=== PATIENT | male | born 1985 | race Caucasian/White ===

== ENCOUNTER 2020-11-03 09:58 | Outpatient (REF) | payer OTHER, SELFPAY | END 2020-11-03 09:59 | disposition home or self-care (01) | LOC: HO.LAB 09:58 | PROVIDERS: Visit Provider Internal Medicine | DX: Z20.828 Contact with and (suspected) exposure to other viral communicable diseases (principal) | CPT/HCPCS: C9803; U0003 ==

== ENCOUNTER 2021-03-23 08:45 | Outpatient (REF) | payer OTHER, SELFPAY ==
[2021-03-23 09:20] LABS: COVID-19 Test Negative (Negative); IDNOW Serial# 55D5AD1C
== END 2021-03-23 08:46 | disposition home or self-care (01) ==
LOC: HO.LAB 08:45
PROVIDERS: Visit Provider Internal Medicine
DX: Z20.822 Contact with and (suspected) exposure to COVID-19 (principal)
CPT/HCPCS: 36415; 87635; C9803

== ENCOUNTER 2022-07-31 09:04 | Emergency (ER) | payer OTHER, SELFPAY ==
--- NOTE | ~2022-07-31 | US_ITS ---
EXAMINATION: US SCROTUM CLINICAL INFORMATION: Left-sided pain.. COMPARISON: None TECHNIQUE: A sonogram of the scrotum was performed assessing ochoa-scale appearance and color Doppler flow. Spectral Doppler analysis of the arterial and venous flow were performed in the testes bilaterally. FINDINGS: RIGHT: Right testicle measures 3.7 x 2.1 x 2.6 cm, volume 10.6 mL. No solid lesions seen. Spectral Doppler analysis of the arterial and venous flow is slightly increased in the right testis. Right epididymal head is unremarkable in size. There are 3 small epididymal head cysts noted measuring up to 3 mm. No right hydrocele or varicocele is seen. Right epididymal Doppler flow is normal. LEFT: Left testicle measures 4.2 x 2.2 x 2.6 cm, volume 12.6 mL. No focal testicular parenchymal lesions are visualized. Spectral Doppler analysis of the arterial and venous flow is slightly increased in the left testis. Left epididymal head is normal in size.. There is a punctate calcified cystic structure in the left epididymal head at 5 x 7 mm probably an old spermatocele or complex cyst. No left hydrocele or varicocele is seen. Left epididymal Doppler flow is normal. US/US scrotum doppler IMPRESSION: No suspicious intratesticular lesions. There is slight increased vascularity in the right and left testis which could be reflective of orchitis.
--- NOTE | ~2022-07-31 | US_ITS ---
EXAMINATION: US SCROTUM CLINICAL INFORMATION: Left-sided pain.. COMPARISON: None TECHNIQUE: A sonogram of the scrotum was performed assessing ochoa-scale appearance and color Doppler flow. Spectral Doppler analysis of the arterial and venous flow were performed in the testes bilaterally. FINDINGS: RIGHT: Right testicle measures 3.7 x 2.1 x 2.6 cm, volume 10.6 mL. No solid lesions seen. Spectral Doppler analysis of the arterial and venous flow is slightly increased in the right testis. Right epididymal head is unremarkable in size. There are 3 small epididymal head cysts noted measuring up to 3 mm. No right hydrocele or varicocele is seen. Right epididymal Doppler flow is normal. LEFT: Left testicle measures 4.2 x 2.2 x 2.6 cm, volume 12.6 mL. No focal testicular parenchymal lesions are visualized. Spectral Doppler analysis of the arterial and venous flow is slightly increased in the left testis. Left epididymal head is normal in size.. There is a punctate calcified cystic structure in the left epididymal head at 5 x 7 mm probably an old spermatocele or complex cyst. No left hydrocele or varicocele is seen. Left epididymal Doppler flow is normal. US/US scrotum IMPRESSION: No suspicious intratesticular lesions. There is slight increased vascularity in the right and left testis which could be reflective of orchitis.
[2022-07-31 09:07] VITALS: BP 125/71; PULSE 74; RESP 20; TEMP 36.4; O2SAT 99; BMI 44.0
[2022-07-31 09:26] VITALS: BP 112/61; PULSE 66; RESP 14; TEMP 36.4; O2SAT 98
[2022-07-31 09:26] LABS: Appearance Urine Clear; Color Urine Yellow; Glucose Urine UA Negative (Negative); Leukocyte Esterase Urine Negative (Negative); Nitrite Urine Negative (Negative); Specific Gravity - Urine 1.025 (1.005-1.025); Urine Blood Negative (Negative); Urine Ketones Trace mg/dL (Negative); Urine Protein Trace mg/dL (Neg-Trace)
--- NOTE | 2022-07-31 09:43 | ED.MALEGU ---
HPI - Male Genitourinary General Chief complaint: Urogenital-Male Stated complaint: testical pain Time Seen by Provider: 07/31/22 09:27 Source: patient Mode of arrival: ambulatory History of Present Illness Complaint: testicle pain Onset (ago): hour(s) (4am today) Duration: constant Location: left testicle Radiation: left inguinal region Quality: aching Relieving factors: none Exacerbating factors: palpation Associated symptoms: Reports denies other symptoms Related Data Previous Rx's Medication Instructions Recorded ibuprofen 600 mg tablet 600 mg PO Q6H PRN pain #30 tabs 07/31/22 levofloxacin 500 mg tablet 500 mg PO DAILY #10 tabs 07/31/22 Allergies Allergy/AdvReac Type Severity Reaction Status Date / Time No Known Allergies Allergy Unverified 08/18/20 18:12 [No Known Allergies*] Review of Systems Review of Systems: Constitutional : No Fever, No Chills ENT/Mouth : No sore throat, No Rhinorrhea Eyes: No Eye Pain, No Swelling, No Redness Cardiovascular : No Chest Pain, No SOB Respiratory : No Cough, No Sputum, No Wheezing Gastrointestinal : No Nausea, No Vomiting, No Diarrhea, pos abdominal Pain Genitourinary : No Dysuria, No Urinary Frequency, No Hematuria, pos testicle pain Musculoskeletal : No joint pain, No Myalgias, No Joint Swelling Skin : No Skin Lesions, No rash Neuro : No Weakness, No Numbness, No Dizziness, No Headache Psych : No Anxiety/Panic, No Depression Heme/Lymph: No Bruising, No Bleeding,No Lymphadenopathy Endocrine : No Polyuria, No Polydipsia All other systems reviewed and are negative FORMERLY [facility], [facility] Past Medical History Medical History No pertinent past medical history Social History Social History Patient Tobacco Use Status: Current everyday Tobacco user Use of substances other than those prescribed or required for medical reasons: No Substance Use Type: Marijuana Advance Directives: No Advance Directives Information Provided: Yes Physical Exam Vital Signs: Vital Signs: Last Vital Signs Temp 97.6 F 07/31/22 09:26 Pulse 66 07/31/22 09:26 Resp 14 07/31/22 09:26 BP 112/61 07/31/22 09:26 Pulse Ox 98 07/31/22 09:26 O2 Del Method 07/31/22 09:26 BMI result Body Mass Index 44.0 Appearance: Alert. Oriented X3. No acute distress. Eyes: Pupils equal, round and reactive to light. ENT: Pharynx normal. Neck: Normal inspection. Neck supple. CVS: Normal heart rate and rhythm. Pulses normal. Respiratory: No respiratory distress. Breath sounds normal. Abdomen: Soft and nontender. no mass felt in L inguinal area : ttp along L spermatic cord, penis and scrotum itself appear normal Skin: Skin warm and dry. Normal skin color. Normal skin turgor. Extremities: No lower extremity edema. No calf ttp Neuro: Oriented X 3. No motor deficit. No sensory deficit. Course Course Course Narrative: patient reports low susp for STI hes 36 will give rocephin and then cover with levofloxacin given risk factors - not toxic, anticipate DC home low susp for G+C at this time MDM - Male Genitourinary MDM Narrative Medical decision making narrative: 36 yo male with atraumatic L testicular pain - at this time will need UA, US to evaluate for torsion/epididymitis - no other systemic symptoms. Could be renal colic though no hematuria and no prior bouts of kidney stones. Dispo per results and findings. Lab Data Result diagrams: 07/31/22 11:07 07/31/22 11:07 Labs: Lab Results 07/31/22 07/31/22 07/31/22 Range/Units 09:18 11:07 11:07 WBC 7.4 (4.8-10.8) X10*3/uL RBC 5.79 (4.60-5.80) X10*6/uL Hgb 16.3 (14.0-18.0) g/dl Hct 49.5 (42.0-52.0) % MCV 85.5 (80.0-98.0) fL MCH 28.2 (27.0-33.0) pg MCHC 32.9 (31.0-36.0) g/dl RDW 12.8 (11.0-16.0) % Plt Count 221 (160-400) X10*3/uL MPV 11.2 (9.4-12.4) fL Immature Gran % (Auto) 0.3 (0.0-0.4) % Neut % (Auto) 52.9 (45-73) % Lymph % (Auto) 28.5 (20-40) % [place] % (Auto) 8.5 (2-11) % Eos % (Auto) 9.0 H (0-4) % Baso % (Auto) 0.8 (0-2) % Lymph # (Auto) 2.1 (1.2-4.9) X10*3/uL [place] # (Auto) 0.6 (0.1-1.2) X10*3/uL Eos # (Auto) 0.7 H (0.0-0.4) X10*3/uL Baso # (Auto) 0.1 (0.0-0.2) X10*3/uL Abs Immat Gran (auto) 0.02 (0.00-0.03) X10*3/uL Absolute Neuts (auto) 3.9 (2.0-8.3) x10*3/uL Absolute Nucleated RBC 0.000 (0.0-0.012) X10*3/uL Nucleated RBC % (auto) 0.0 (0.0-0.2) /100WBC Sodium 139 (135-145) mmol/L Potassium 4.2 (3.3-5.1) mmol/L Chloride 104 (96-108) mmol/L Carbon Dioxide 25 (22-29) mmol/L Anion Gap 14 (12-20) BUN 12 (9-16) mg/dL Creatinine 0.95 (0.5-1.4) mg/dL Estim Creat Clear Calc 163.5 Estimated GFR > 60 Random Glucose 93 (60-115) mg/dL Calcium 9.1 (8.4-10.2) mg/dL Urine Color Yellow Urine Appearance Clear Urine pH 6.0 (5.0-8.0) Ur Specific [place] 1.025 (1.005-1.025) Urine Protein Trace (Neg-Trace) mg/dL Urine Glucose (UA) Negative (Negative) mg/dL Urine Ketones Trace (Negative) mg/dL Urine Blood Negative (Negative) Urine Nitrite Negative (Negative) Ur Leukocyte Esterase Negative (Negative) Discharge Plan Discharge Clinical Impression: Acute orchitis Patient Disposition: Home, Self-Care Instructions: Orchitis (ED), Scrotal Pain (ED) Additional Instructions: return to ED for any worsening symptoms or concerns return for fevers, vomiting, no improvement in pain, do not exercise on these medications you could injure a tendon, wear tight fitting supportive underwear no sex for 1 week we will notify you of positive test results in the next 48 to 72 hours Prescriptions: New levofloxacin 500 mg tablet 500 mg PO DAILY Qty: 10 0RF ibuprofen 600 mg tablet 600 mg PO Q6H PRN (Reason: pain) Qty: 30 0RF Stand Alone Forms: Work/School Release
[2022-07-31 11:10] LABS: MANUAL DIFF FLAG NO
[2022-07-31 11:16] LABS: Basophils Absolute Auto 0.1 X10*3/uL (0.0-0.2); Basophils Percent Auto 0.8 % (0-2); Eosinophils Absolute Auto 0.7 X10*3/uL (0.0-0.4); Hematocrit 49.5 % (42.0-52.0); Hemoglobin 16.3 g/dl (14.0-18.0); Imm Gran Abs Auto 0.02 X10*3/uL (0.00-0.03); Imm Gran Pct Auto 0.3 % (0.0-0.4); Lymphocytes Absolute Auto 2.1 X10*3/uL (1.2-4.9); Lymphocytes Percent Auto 28.5 % (20-40); Mean Corpuscular HGB Conc 32.9 g/dl (31.0-36.0); Mean Corpuscular Hemoglobin 28.2 pg (27.0-33.0); Mean Corpuscular Volume 85.5 fL (80.0-98.0); Mean Platelet Volume 11.2 fL (9.4-12.4); Monocytes Absolute Auto 0.6 X10*3/uL (0.1-1.2); Monocytes Percent Auto 8.5 % (2-11); Neutrophils Absolute Auto 3.9 x10*3/uL (2.0-8.3); Neutrophils Percent Auto 52.9 % (45-73); Platelet Count 221 X10*3/uL (160-400); Red Blood Count 5.79 X10*6/uL (4.60-5.80); Red Cell Distribution Width 12.8 % (11.0-16.0); White Blood Count 7.4 X10*3/uL (4.8-10.8)
[2022-07-31 11:24] LABS: Anion Gap 14 (12-20); Blood Urea Nitrogen 12 mg/dL (9-16); Calcium 9.1 mg/dL (8.4-10.2); Carbon Dioxide 25 mmol/L (22-29); Chloride 104 mmol/L (96-108); Creatinine Clr Calc Pharmacy 163.5; Estimated Glomerular Filt Rate > 60; Glucose Random 93 mg/dL (60-115); Potassium 4.2 mmol/L (3.3-5.1); Sodium 139 mmol/L (135-145)
[2022-07-31] MEDS: cefTRIAXone sodium 500 MG, Lidocaine HCl 1 % MPF 1 ML IM (11:52)
[2022-07-31 13:51] LABS: CT PCR NOT DETECTED (Not Detect.); NG PCR NOT DETECTED (Not Detect.)
== END 2022-07-31 11:56 | disposition home or self-care (01) ==
PROVIDERS: Emergency Provider Emergency Medicine
DX: N45.2 Orchitis (principal); N50.812 Left testicular pain
CPT/HCPCS: 36415; 76870; 80048; 81003; 85025; 87491; 87591; 93975; 96372; 99284; J0696

== ENCOUNTER 2022-09-27 11:37 | Outpatient (REF) | payer OTHER, SELFPAY ==
[2022-09-27 12:17] LABS: COVID-19 Test Positive (Negative); IDNOW Serial# 16C4AD1C
== END 2022-09-27 11:38 | disposition home or self-care (01) ==
LOC: HO.LAB 11:37
PROVIDERS: Visit Provider Internal Medicine
DX: Z20.822 Contact with and (suspected) exposure to COVID-19 (principal)
CPT/HCPCS: 87635; C9803

== ENCOUNTER 2025-08-19 11:01 | Emergency (ER) | payer OTHER, SELFPAY ==
--- NOTE | ~2025-08-19 | XR_ITS ---
EXAMINATION: XR ANKLE 3 OR MORE VIEWS RIGHT, XR FOOT 3 OR MORE VIEWS RIGHT HISTORY: pain lateral malleolus, ?gout COMPARISON: Comparison is made with the prior examination of the right foot dated 08/05/2019. FINDINGS: Six views of the right foot and ankle are submitted. Osseous mineralization is normal. There is no fracture or dislocation. The joint spaces are preserved. There are no erosions. There is soft tissue swelling over the lateral malleolus. XR/XR foot RT min 3V IMPRESSION: Soft tissue swelling over the lateral malleolus. Otherwise unremarkable examination of the right foot and ankle. Electronically signed by: Jl Russo MD 08/19/2025 12:13 PM EDT
--- NOTE | ~2025-08-19 | XR_ITS ---
EXAMINATION: XR ANKLE 3 OR MORE VIEWS RIGHT, XR FOOT 3 OR MORE VIEWS RIGHT HISTORY: pain lateral malleolus, ?gout COMPARISON: Comparison is made with the prior examination of the right foot dated 08/05/2019. FINDINGS: Six views of the right foot and ankle are submitted. Osseous mineralization is normal. There is no fracture or dislocation. The joint spaces are preserved. There are no erosions. There is soft tissue swelling over the lateral malleolus. XR/XR ankle RT min 3V IMPRESSION: Soft tissue swelling over the lateral malleolus. Otherwise unremarkable examination of the right foot and ankle. Electronically signed by: Jl Russo MD 08/19/2025 12:13 PM EDT
[2025-08-19 11:21] VITALS: BP 119/72; PULSE 88; RESP 18; TEMP 36.8; O2SAT 99; BMI 51.3
--- NOTE | 2025-08-19 11:22 | ED.LOWEXIN ---
HPI - Extremity Injury (Lower) General Chief Complaint: General Medical Stated Complaint: r ankle inj Time Seen by Provider: 08/19/25 12:16 Source: patient and RN notes reviewed Mode of arrival: ambulatory Limitations: no limitations History of Present Illness ED Provider: Lynne Wilson PA-C HPI Narrative: This is a 40-year-old male, with no known medical problems, who presents emergency department with concerns of right ankle pain for the last 2 days. Patient denies any recent trauma, injury, or falls. No history of similar symptoms in the past. He states that his family does have a history of gout. He states that yesterday he noticed pain however this morning he has been unable to bear weight secondary to the pain. No fevers or chills. He states that he took a Percocet this morning which provided him with some relief. No other complaints or concerns at this time. MD complaint: ankle injury Onset (ago): day(s) Type of Injury: unknown Relieving factors: nothing Exacerbating factors: nothing Associated symptoms: swelling Other symptoms: none Related Data Previous Rx's ?Medication ?Instructions ?Recorded ibuprofen 600 mg tablet 600 mg PO Q6H PRN pain #30 tabs 07/31/22 levofloxacin 500 mg tablet 500 mg PO DAILY #10 tabs 07/31/22 acetaminophen 500 mg tablet 1,000 mg (2 x 500 mg) PO QID PRN 08/19/25 (Tylenol Extra Strength) pain #30 tabs ibuprofen 600 mg tablet 600 mg PO Q6H PRN pain #30 tabs 08/19/25 morphine 15 mg immediate release 15 mg PO Q6H PRN severe pain 08/19/25 tablet (scale score 7-10) 4 days #7 tabs prednisone 20 mg tablet 40 mg (2 x 20 mg) PO DAILY 4 days 08/19/25 #8 tabs Allergies Allergy/AdvReac Type Severity Reaction Status Date / Time No Known Allergies (No Known Allergy Verified 08/19/25 11:23 Allergies*) Review of Systems Review of Systems: Constitutional : No Fever, No Chills ENT/Mouth : No sore throat, No Rhinorrhea Eyes: No Eye Pain, No Swelling, No Redness Cardiovascular : No Chest Pain, No SOB Respiratory : No Cough, No Sputum Gastrointestinal : No Nausea, No Vomiting, No Diarrhea, No abdominal Pain Genitourinary : No Dysuria, No Hematuria Musculoskeletal :+ joint pain, No Myalgias, + Joint Swelling Skin : No Skin Lesions Neuro : No Weakness, No Numbness, No Headache All other systems reviewed and are negative Yes all other systems are reviewed and are negative Constitutional: Constitutional: Reports as per [facility] Past Medical History Attestation statement: The following information was validated with the patient. Medical History No pertinent past medical history Social History Social History Alcohol intake: current Alcohol intake frequency: holidays/special occasions only Alcohol type: beer Patient Tobacco Use Status: Current everyday Tobacco user Smoked in Last 30 Days: Yes Use of substances other than those prescribed or required for medical reasons: Yes Substance Use Type: Marijuana Advance Directives: No Advance Directives Information Provided: No Physical Exam Vital Signs: Vital Signs: Last Vital Signs Temp 98.2 F 08/19/25 14:26 Pulse 88 08/19/25 14:26 Resp 18 08/19/25 14:26 BP 119/72 08/19/25 14:26 Pulse Ox 99 08/19/25 14:26 O2 Del Method Room Air 08/19/25 14:26 BMI result Body Mass Index 51.3 Const: General: cooperative, comfortable and no acute distress Orientation/consciousness: patient oriented x3 Limitations: no limitations HEENT: Head: Yes normal to inspection, Yes normocephalic and Yes atraumatic Ears: hearing grossly normal bilaterally General nose exam: Normal external nose present Face and sinus: Yes normal facial exam Mouth: Normal oral and palatal mucosa present, oropharynx normal and moist mucous membranes Throat: Yes posterior oropharynx normal Eyes: General: appearance normal, both eyes and all related structures Eyelids: Yes eyelids normal Conjunctivae: conjunctivae normal Sclerae: sclerae normal Pupils: Equal, round and reactive pupils present EOM: EOMs intact bilaterally Neck: Neck: Yes normal visual inspection, Yes full ROM and Yes no lymphadenopathy Lymphatic: no lymphadenopathy noted Chest: Chest palpation & inspection: normal inspection of the chest Resp: Effort & Inspection: normal respiratory effort and able to speak in complete sentences Auscultation: clear to auscultation bilaterally, no crackles, no rales, no rhonchi and no wheezes Cardio: Rate: regular rate Rhythm: regular rhythm Heart sounds: S1 normal heart sound present and S2 normal heart sound present GI: Inspection: Yes normal to inspection Skin: General skin exam: no rashes or lesions noted Trauma: no lacerations or abrasions Wounds: no wounds Neuro: General: patient oriented x3 and moves all extremities Cranial nerves: Yes Equal, round and reactive pupils present Extrem: Other: Right ankle lateral malleolus, with tenderness palpation even to light palpation, with faint erythema and warmth, able to dorsi and plantar flex. Strong DP pulse. No calf tenderness. General: Yes normal to inspection Right upper extremity: normal to inspection Left upper extremity: normal to inspection Left lower extremity: normal to inspection Course Course Course Narrative: This is an RME: Additional HPI, ROS, PE not included below will be deferred to primary provider. RME assessment and note performed by: Lynne Wilson PA-C This is a 6-ct[age]-male, with no known medical problems, who presents emergency department with complaints of atraumatic right ankle pain since yesterday. Patient unable to bear weight today. No history of gout. Tenderness palpation along the lateral aspect of the right malleolus with warmth and edema noted. Plan: Labs, x-ray, further ER evaluation needed. Medications Administered Discontinued Medications Generic Name Dose Route Start Last Admin Trade Name Freq PRN Reason Stop Dose Admin Acetaminophen 975 mg 08/19/25 13:01 08/19/25 13:18 Acetaminophen 325 Mg Tablet PO 08/19/25 13:02 975 mg ONCE ONE Administration Morphine Sulfate 15 mg 08/19/25 13:01 08/19/25 13:18 Morphine Sulfate Immed Release 15 Mg Tablet PO 08/19/25 13:02 15 mg ONCE ONE Administration Prednisone 50 mg 08/19/25 13:01 08/19/25 13:18 Prednisone 10 Mg Tablet PO 08/19/25 13:02 50 mg ONCE ONE Administration Medical Decision Making Medical Decision Making MDM Narrative: This is a 40-year-old male who presents emergency department with complaints of right ankle pain for the last 2 days. No trauma or injury. On arrival, vital signs within normal limits. He is speaking in full sentences under no acute distress. No known history of gout however atraumatic, with tenderness to palpation even to light palpation with warmth, and faint erythema, suspicious for gout flare-up. Able to dorsi and plantar flex however limited secondary to pain. Will obtain labs to rule out any significant electrolyte derangement as well as x-rays to rule out any bony abnormalities. 1:13 PM 08/19/2025 (Lynne Wilson PA-C): Labs returned, he has slight leukocytosis at 12.3, likely reactive, ESR 3, CRP just above normal range at 0.7, uric acid is elevated at 7.9. X-ray of the right foot and ankle reveal moderate edema noted along the lateral malleolus. Overall workup today consistent with gout, will treat with Tylenol, morphine, and prednisone in the department today. Will monitor closely to ensure that his pain has improved prior to departure. Differential Diagnosis Differential Diagnoses: The differential diagnosis associated with the presentation includes Gout, cellulitis, septic arthritis, strain, sprain, contusion Lab Data [facility] Lab Attestation statement: I reviewed the patient's lab results. See [facility] 08/19/25 11:42 08/19/25 11:42 Labs: Lab Results 08/19/25 Range/Units 11:42 WBC 12.3 H (4.8-10.8) X10*3/uL RBC 5.68 (4.60-5.80) X10*6/uL Hgb 16.8 (14.0-18.0) g/dl Hct 49.2 (42.0-52.0) % MCV 86.6 (80.0-98.0) fL MCH 29.6 (27.0-33.0) pg MCHC 34.1 (31.0-36.0) g/dl RDW 12.9 (11.0-16.0) % Plt Count 166 (160-400) X10*3/uL MPV 11.4 (9.4-12.4) fL Immature Gran % (Auto) 0.3 (0.0-0.4) % Neut % (Auto) 71.1 (45-73) % Lymph % (Auto) 13.1 L (20-40) % [place] % (Auto) 9.3 (2-11) % Eos % (Auto) 5.6 H (0-4) % Baso % (Auto) 0.6 (0-2) % Lymph # (Auto) 1.6 (1.2-4.9) X10*3/uL [place] # (Auto) 1.1 (0.1-1.2) X10*3/uL Eos # (Auto) 0.7 H (0.0-0.4) X10*3/uL Baso # (Auto) 0.1 (0.0-0.2) X10*3/uL Abs Immat Gran (auto) 0.04 H (0.00-0.03) X10*3/uL Absolute Neuts (auto) 8.8 H (2.0-8.3) x10*3/uL Absolute Nucleated RBC 0.000 (0.0-0.012) X10*3/uL Nucleated RBC % (auto) 0.0 (0.0-0.2) /100WBC ESR 3 (0-15) MM/HR Sodium 138 (135-145) mmol/L Potassium 4.1 (3.3-5.1) mmol/L Chloride 105 (96-108) mmol/L Carbon Dioxide 24 (22-29) mmol/L Anion Gap 13 (12-20) BUN 12 (9-16) mg/dL Creatinine 0.95 (0.5-1.4) mg/dL Estim Creat Clear Calc 171.7 Estimated GFR > 60 Random Glucose 97 (60-115) mg/dL Uric Acid 7.9 H (3.4-7.0) mg/dL Calcium 9.4 (8.4-10.2) mg/dL Total Bilirubin 0.6 (0.0-1.0) mg/dL Direct Bilirubin 0.2 (0.0-0.5) mg/dL AST 34 (5-37) U/L ALT 41 H (0-40) U/L Alkaline Phosphatase 65 (39-117) U/L C-Reactive Protein 0.70 H (< or = 0.50) mg/dL Total Protein 7.5 (6.5-8.0) g/dL Albumin 4.3 (3.5-5.0) g/dL Radiology Impression Discussion of test interpretation with radiology: I have reviewed the radiologist's reading. Radiologist Impression: FINDINGS: Six views of the right foot and ankle are submitted. Osseous mineralization is normal. There is no fracture or dislocation. The joint spaces are preserved. There are no erosions. There is soft tissue swelling over the lateral malleolus. XR/XR foot RT min 3V IMPRESSION: Soft tissue swelling over the lateral malleolus. Otherwise unremarkable examination of the right foot and ankle. Electronically signed by: Jl Russo MD 08/19/2025 12:13 PM EDT RP Dictated By: Jl Russo MD FINDINGS: Six views of the right foot and ankle are submitted. Osseous mineralization is normal. There is no fracture or dislocation. The joint spaces are preserved. There are no erosions. There is soft tissue swelling over the lateral malleolus. XR/XR ankle RT min 3V IMPRESSION: Soft tissue swelling over the lateral malleolus. Otherwise unremarkable examination of the right foot and ankle. Electronically signed by: Jl Russo MD 08/19/2025 12:13 PM EDT RP Dictated By: Jl Russo MD Discharge Plan Discharge Clinical Impression: Gout Patient Disposition: Home, Self-Care Instructions: Low Purine Diet (ED), Gout (ED), Swollen Ankle Joint (ED) Additional Instructions: You were seen in the emergency department due to right ankle pain. Your exam as well as your blood work is concerning for gout. Please see attached documentation as to lifestyle modifications to help prevent flare-ups from happening in the future. Please take prescribed prednisone as directed, you already received a dose today therefore start this tomorrow. Ibuprofen and or Tylenol around the clock and help for pain. Ibuprofen 600 mg every 6 hours take this with food, 2 hours later take Tylenol 1000 mg every 8 hours. Morphine as a strong narcotic pain medication, take this only for severe pain only. Please be advised that this is an addictive medication therefore should only be reserved for emergency purposes only. Please be advised that we can not refill this medication through the emergency room, this may cause drowsiness, do not drink alcohol or drive while taking this medication. Call your primary care physician regarding this visit. If any new or worsening symptoms occur including but not limited to high fevers, worsening redness or swelling to your ankle, inability to move ankle, please return for re-evaluation. Prescriptions: New prednisone 20 mg tablet 40 mg PO DAILY 4 Days Qty: 8 0RF Rx Instructions: start 08/20 morphine 15 mg tablet 15 mg PO Q6H PRN (Reason: severe pain (scale score 7-10)) 4 Days Qty: 7 0RF Rx Instructions: Partial Fill upon patient request. ibuprofen 600 mg tablet 600 mg PO Q6H PRN (Reason: pain) Qty: 30 0RF acetaminophen [Tylenol Extra Strength] 500 mg tablet 1,000 mg PO QID PRN (Reason: pain) Qty: 30 0RF No Action levofloxacin 500 mg tablet 500 mg PO DAILY Qty: 10 0RF ibuprofen 600 mg tablet 600 mg PO Q6H PRN (Reason: pain) Qty: 30 0RF Stand Alone Forms: Work/School Release Interventions: ED Discharge Assessment Last Done: 08/19/25 14:26 Discharge Date/Time: 08/19/25 14:27 Print Language: Romanian
[2025-08-19 11:46] LABS: MANUAL DIFF FLAG NO
[2025-08-19 11:47] LABS: Hematocrit 49.2 % (42.0-52.0); Hemoglobin 16.8 g/dl (14.0-18.0); Imm Gran Abs Auto 0.04 X10*3/uL (0.00-0.03); Imm Gran Pct Auto 0.3 % (0.0-0.4); Lymphocytes Absolute Auto 1.6 X10*3/uL (1.2-4.9); Mean Corpuscular HGB Conc 34.1 g/dl (31.0-36.0); Mean Corpuscular Hemoglobin 29.6 pg (27.0-33.0); Mean Corpuscular Volume 86.6 fL (80.0-98.0); NRBC Abs Auto 0.000 X10*3/uL (0.0-0.012); NRBC Pct Auto 0.0 /100WBC (0.0-0.2); Platelet Count 166 X10*3/uL (160-400); Red Blood Count 5.68 X10*6/uL (4.60-5.80); White Blood Count 12.3 X10*3/uL (4.8-10.8)
[2025-08-19 12:04] LABS: Alanine Aminotransferase 41 U/L (0-40); Albumin Level 4.3 g/dL (3.5-5.0); Alkaline Phosphatase 65 U/L (39-117); Anion Gap 13 (12-20); Aspartate Amino Transferase 34 U/L (5-37); Blood Urea Nitrogen 12 mg/dL (9-16); Calcium 9.4 mg/dL (8.4-10.2); Carbon Dioxide 24 mmol/L (22-29); Chloride 105 mmol/L (96-108); Creatinine Clr Calc Pharmacy 171.7; Estimated Glomerular Filt Rate > 60; Potassium 4.1 mmol/L (3.3-5.1); Sodium 138 mmol/L (135-145); Total Protein 7.5 g/dL (6.5-8.0); Uric Acid 7.9 mg/dL (3.4-7.0)
[2025-08-19] MEDS: Morphine Sulfate Immed Release 15 MG TABLET PO (13:18)
[2025-08-19 13:30] VITALS: BP 119/72; PULSE 88; RESP 18; TEMP 36.8; O2SAT 99
[2025-08-19 14:07] VITALS: BP 119/72; PULSE 88; RESP 18; TEMP 36.8; O2SAT 99
[2025-08-19 14:26] VITALS: BP 119/72; PULSE 88; RESP 18; TEMP 36.8; O2SAT 99
--- OUTSIDE RECORDS SUMMARY | 2025-08-19 14:36 | XMS_ITS | Encounter Summary ---
Author Organization [facility] Address [address] [place] [address] Care Team Providers Care Irrigation Foreman Name Role Phone Unavailable Primary Care Provider Unavailabl e Encounter Details Date Type Department Care Team (Latest Contact Info) Description 11/12/2019 Abstract [facility] CONVERSIONS Dental, Provider, DDS Social History Tobacco Use Types Packs/Day Years Used Date Smoking Tobacco: Never Assessed Sex and Gender Information Value Date Recorded Sex Assigned at Male 10/01/2022 10:24 AM EDT Legal Sex Male 10:24 AM EDT Gender Identity Male 10/23/2024 8:44 AM EST Sexual Orientation Straight 10/23/2024 8: 45 AM EST documented as of this encounter Plan of Treatment Not on file documented as of this encounter Visit Diagnoses Not on filedocumented in this encounter
--- OUTSIDE RECORDS SUMMARY | 2025-08-19 14:36 | XMS_ITS ---
Author Name [facility] Organization Unknown Care Team Organization Name Specialty Phone Email Start Date End Da te [facility] 10/09/2022 07/20/2024
--- OUTSIDE RECORDS SUMMARY | 2025-08-19 14:36 | XMS_ITS | Clinical Summary ---
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 20 tablet 10/23/2024 Active ibuprofen 600 MG tabletIndication s:Dental caries into pulp,Impacted tooth Take 1 tablet (600 mg) by mouth every 6 (six) hours if needed for mild pain for up to 20 doses. 20 tablet 10/23/2024 Active Active Problems Problem Noted Date Diagnosed Date Tartar deposits on teeth 12/24/2024 Periodontal disease 12/24/2024 Dental caries into pulp 10/23/2024 Impacted tooth 10/23/2024 Social History Tobacco Use Types Packs/Day Years Used Date Smoking Tobacco: Former Cigarettes Passive Smoke Exposure: Never Smokeless Tobacco: Former Tobacco Cessation:Counseling Given: No Alcohol Use Standard Drinks/Week Comments Defer 0 (1 standard drink = 0.6 oz pur e alcohol) Sex and Gender Information Value Date Recorded Sex Assigned at Male 10/01/2022 10:24 AM EDT Legal Sex Male 10:24 AM EDT Gender Identity Male 10/23/2024 8:44 AM EST Sexual Orientation Straight 10/23/2024 8: 45 AM EST Last Filed Vital Signs Vital Sign Reading Time Taken Comments Blood Pressure 152/86 12/24/2024 9:46 AM EST Pulse - - Temperature - - Respiratory Rate - - Oxygen Saturation - - Inhaled Oxygen Concentration - - Weight - - Height - - Body Mass Index - - Plan of Treatment Health Maintenance Due Date Last Done Comments Depression Screening 1987 HIV Screening 1987 Lipid Panel 1987 SDOH Screening 1987 Disability Screening 1987 Alcohol/Substance Use Screening 1999 Family Planning (PISQ) 2002 HPV Vaccines (1 - Male 3-dose series) 2002 Hepatitis C Screening 2005 Hepatitis B Vaccines (1 of 3 - 19+ 3-dose series) 2006 DTaP/Tdap/Td Vaccines (1 - Tdap) 10/10/2019 10/09/2019, 05/22/2018 Dental Oral Exam 06/24/2025 12/24/2024, , 10/14/2019 Dental Prophylaxis 06/24/2025 12/24/2024, 11/12/2019 COVID-19 Vaccine (1 - season) 2025 Influenza Vaccine (#1) 2025 Tobacco Screening 12/24/2025 12/24/2024 Dental X-Ray: Bitewings 12/25/2025 12/24/2024, 10/14 Dental X-Ray: Full Mouth 12/25/2027 025, 10/23/2024, 12/22/2019, Additional history exists Zoster Vaccines (1 of 2) 2037 RSV Patients and Patients Aged 60 years or older (1 - 1-dose 75+ series) 2062 HIB Vaccines Aged Out No longer eligi ble based on patient's age to complete this topic Hepatitis A Vaccines Aged Out No long er eligible based on patient's age to complete this topic IPV Vaccines Aged Out No longer eligi ble based on patient's age to complete this topic Meningococcal B Vaccine Aged Out No l onger eligible based on patient's age to complete this topic Meningococcal Vaccine Aged Out No jerry louie eligible based on patient's age to complete this topic Pneumococcal Vaccine: Pediatrics (0 to 5 Years) and At-Risk Patients (6 to 49) Years Aged Out No longer eligible based on patient's age to complete this topic RSV under 20 months Aged Out No longe r eligible based on patient's age to complete this topic Rotavirus Vaccines Aged Out No longer eligible based on patient's age to complete this topic Procedures Procedure Name Priority Date/Time Associated Diagnosis Comments PROPHYLAXIS - ADULT Routine 12/24/2024 1 0:00 AM EST Dental calculus Subgingival dental calculus Dental plaque Tartar deposits on teeth Periodontal disease INTRAORAL - COMPLETE SERIES OF RADIOGRAPHIC IMAGES Routine 12/24/2024 10:00 AM EST PERIODIC ORAL EVALUATION - ESTABLISHED PATIENT Routine 12/24/2024 10:00 AM EST from Last 3 Months or Most Recently Relevant to Health Maintenance Insurance [facility] STAND ADULT
== END 2025-08-19 14:27 | disposition home or self-care (01) ==
PROVIDERS: Physician Assistant Medical; Emergency Provider Emergency Medicine
DX: M10.071 Idiopathic gout, right ankle and foot (principal); M79.671 Pain in right foot; F17.210 Nicotine dependence, cigarettes, uncomplicated
CPT/HCPCS: 36415; 73610; 73630; 80048; 80076; 84550; 85025; 85652; 86140; 99283; 99284

== ENCOUNTER → 2025-08-19 11:24 | Outpatient (BNV) | payer OTHER, SELFPAY | PROVIDERS: Emergency Provider Emergency Medicine; Visit Provider Radiology Diagnostic Radiology | DX: M70.871 Other soft tissue disorders related to use, overuse and pressure, right ankle and foot (principal) | CPT/HCPCS: 73610; 73630 ==